=== PATIENT | male | born 2000 | race Two or more races ===

== ENCOUNTER 2021-01-22 04:59 | Emergency (ER) | payer OTHER ==
[~2021-01-22] VITALS: Ht 188 cm; Wt 127.0 kg
--- NOTE | 2021-01-22 05:03 | NUR ---
PT AAOX4. BIBRA C/O SEIZURE X2 TIMES [employer]. PT PLACED IN BED 9 ON MONITOR AND PULSE OX. SEIZURE PRECAUTION INITIATED. ER MD AT BEDSIDE SPEAKING TO PT.
[2021-01-22] MEDS ORDERED: LEVETIRACETAM (500MG) 500 MG/5 ML VIAL IV ONE (05:18)
[2021-01-22] MEDS ORDERED: DIVALPROEX SODIUM 500 MG TABLET.DR PO ONE (05:18)
[2021-01-22] MEDS ORDERED: DIVALPROEX SODIUM 250 MG TABLET.DR PO ONE ×2 (05:18→05:30)
[2021-01-22 05:22] LABS: BASOPHILS # (AUTO) 0.1 /CMM (0.0-0.2); BASOPHILS % (AUTO) 1.3 % (0.0-2.0); EOSINOPHILS % (AUTO) 4.8 % (0.0-6.0); HEMATOCRIT 40 % (39-51); HEMOGLOBIN 13.2 g/dL (13.5-17.5); LYMPHOCYTES # (AUTO) 1.8 /CMM (0.8-4.8); LYMPHOCYTES % (AUTO) 30.8 % (20.0-44.0); MEAN CORPUSCULAR HGB CONC 33 g/dl (31.0-36.0); MEAN CORPUSCULAR VOLUME 90 fL (80-96); MONOCYTES # (AUTO) 0.5 /CMM (0.1-1.30); MONOCYTES % (AUTO) 9.1 % (2.0-12.0); NEUTROPHILS # (AUTO) 3.2 /CMM (1.8-8.9); PLATELET COUNT (AUTO) 184 /CMM (150-450); RED BLOOD CELL COUNT(AUTO) 4.47 MIL/uL (4.5-6.0); WHITE BLOOD COUNT (AUTO) 5.9 K/uL (4.3-11.0)
--- NOTE | 2021-01-22 05:23 | NUR ---
PT PROVIDED WITH PAKO AND VENICE.
[2021-01-22 05:30] LABS: CALCIUM, SERUM 8.7 mg/dL (8.5-10.1); CREATININE 1.1 mg/dL (0.6-1.3); POTASSIUM 4.2 mmol/L (3.5-5.1)
[2021-01-22] MEDS ORDERED: LEVETIRACETAM (500MG) 500 MG in IV NS 0.9% 100 ML IV ONE (05:30)
--- NOTE | 2021-01-22 05:46 | NUR ---
PT AAOX4. REMAINS IN BED, AWARE OF PLAN OF CARE.
[2021-01-22] MEDS ORDERED: LEVE500T9 PO (06:09)
[2021-01-22] MEDS ORDERED: DIVA500T2 PO (06:09)
--- NOTE | 2021-01-22 06:23 | NUR ---
Patient discharged to home in stable condition. Written and verbal after care instructions given. Patient verbalizes understanding of instruction and RX. Pt ambulated out of ED. VSS.
--- NOTE | 2021-01-22 06:23 | NUR ---
IV removed. Catheter intact and site benign. Pressure and 4x4 applied to site. No bleeding noted.
[2021-01-22 06:31] VITALS: BP 119/72
== END 2021-01-22 06:31 | disposition home or self-care (01) ==
LOC: ER 05:02
DX: R56.9 Unspecified convulsions (principal); Z91.14 Patient's other noncompliance with medication regimen; E78.00 Pure hypercholesterolemia, unspecified; J45.909 Unspecified asthma, uncomplicated; Z88.8 Allergy status to other drugs, medicaments and biological substances; Z79.899 Other long term (current) drug therapy
CPT/HCPCS: 36415; 80048; 82962; 85025; 96365; 99284; J1953 ×2; J7030

== ENCOUNTER 2021-01-22 17:13 | Emergency (ER) | payer OTHER ==
[~2021-01-22] VITALS: Ht 188 cm; Wt 127.0 kg
[~2021-01-22 17:13] MED LIST: DIVA500T2 PO; LEVE500T9 PO
--- NOTE | 2021-01-22 17:30 | NUR ---
AAOX3, [id number] FOR SEIZURE. PT WAS DC'D HERE AROUND 5AM TODAY. BG 109. NO ORAL OR HEAD TRAUMA. SKIN IS WARM AND DRY. RESP IS EVEN AND UNLABORED WITH. AWAITING MD FOR EVAL.
--- NOTE | 2021-01-22 17:31 | NUR ---
DR BEATTY AT BEDSIDE
[2021-01-22] MEDS ORDERED: DIVALPROEX SODIUM 500 MG TABLET.DR PO ONE ×2 (18:00→18:20)
[2021-01-22] MEDS ORDERED: LEVETIRACETAM (500MG) 500 MG in IV NS 0.9% 100 ML IV ONE (18:00)
[2021-01-22 18:19] LABS: BASOPHILS # (AUTO) 0.1 /CMM (0.0-0.2); BASOPHILS % (AUTO) 1.7 % (0.0-2.0); EOSINOPHILS % (AUTO) 6.1 % (0.0-6.0); HEMATOCRIT 40 % (39-51); HEMOGLOBIN 13.6 g/dL (13.5-17.5); LYMPHOCYTES # (AUTO) 1.7 /CMM (0.8-4.8); LYMPHOCYTES % (AUTO) 32.4 % (20.0-44.0); MEAN CORPUSCULAR HGB CONC 34 g/dl (31.0-36.0); MEAN CORPUSCULAR VOLUME 91 fL (80-96); MONOCYTES # (AUTO) 0.4 /CMM (0.1-1.30); MONOCYTES % (AUTO) 8.2 % (2.0-12.0); NEUTROPHILS # (AUTO) 2.7 /CMM (1.8-8.9); NEUTROPHILS % (AUTO) 51.6 % (43.0-81.0); PLATELET COUNT (AUTO) 199 /CMM (150-450); RED BLOOD CELL COUNT(AUTO) 4.43 MIL/uL (4.5-6.0); WHITE BLOOD COUNT (AUTO) 5.3 K/uL (4.3-11.0)
[2021-01-22] MEDS ORDERED: DIVALPROEX SODIUM 250 MG TABLET.DR PO ONE (18:20)
[2021-01-22 18:23] LABS: CALCIUM, SERUM 9.3 mg/dL (8.5-10.1); CREATININE 1.1 mg/dL (0.6-1.3); POTASSIUM 3.8 mmol/L (3.5-5.1)
--- NOTE | 2021-01-22 18:33 | NUR ---
WHEELED OUT VIA GURNEY BY [employer] FOR CT SCAN.
--- NOTE | 2021-01-22 19:32 | NUR ---
Patient discharged to home in stable condition. Written and verbal after care instructions given. Patient verbalizes understanding of instruction.
[2021-01-22 19:33] VITALS: BP 130/80
== END 2021-01-22 19:36 | disposition home or self-care (01) ==
LOC: ER 17:15
DX: R56.9 Unspecified convulsions (principal); E78.00 Pure hypercholesterolemia, unspecified; J45.909 Unspecified asthma, uncomplicated; Z88.8 Allergy status to other drugs, medicaments and biological substances; Z79.899 Other long term (current) drug therapy
CPT/HCPCS: 36415; 70450; 80048; 80164; 85025; 96365; 99284; J1953; J7030